=== PATIENT | male | born 1995 | race Caucasian/White ===

== ENCOUNTER 2024-03-31 16:13 | Emergency (ER) | payer OTHER ==
[2024-03-31 16:32] VITALS: RESP 18
--- NOTE | 2024-03-31 17:03 | XR ---
EXAMINATION TYPE: XR shoulder complete LT DATE OF EXAM: 03/31/2024 4:58 PM COMPARISON: None. CLINICAL INDICATION: Male, 28 years old with history of injury; [facility] TECHNIQUE: XR shoulder complete LT; examined in AP, internally rotated and scapular Y projections. FINDINGS: No evidence of acute osseous pathology, joint dislocation, or soft tissue swelling. The remaining po rtions of the visualized chest are unremarkable. IMPRESSION: No acute osseous pathology. [facility], , 03/31/2024 5:01 PM
[2024-03-31] MEDS: KETOROLAC 15 MG/ML 1 ML VIAL IM STA (17:09)
[2024-03-31] MEDS: DEXAMETHASONE SOD PHOSPHATE 10 MG/ML 1 ML VIAL IM STA (17:10)
[2024-03-31] MEDS: CYCLOBENZAPRINE 10 MG TAB PO STA (17:10)
[2024-03-31] MEDS: LIDOCAINE 4% PATCH TOPICAL ONE (17:10)
--- NOTE | 2024-03-31 17:13 | ED ---
Upper Extremity HPI - General Chief Complaint: Extremity Injury, Upper Stated Complaint: L shoulder injury-[facility] Time Seen by Provider: 03/31/24 16:21 Source: patient Mode of arrival: ambulatory Limitations: no limitations - History of Present Illness Initial Comments: 80-year-old male presenting with chief complaint of left shoulder pain. Patient was at work and opened a bay door when he started having the left shoulder pain. This happened around 9 AM. States that he tried to throughout the day but later on the pain became so bad that he was not able to work anymore. Pain starts at the anterior portion of the shoulder and comes down to his wrist. No neck pain. No obvious deformity. No swelling. Increased pain with any range of motion. - Related Data Allergies Allergy/AdvReac Type Severity Reaction Status Date / Time No Known Allergies Allergy Verified 03/31/24 16:32 Review of Systems ROS Statement: Those systems with pertinent positive or pertinent negative responses have been documented in the HPI. ROS Other: All systems not noted in ROS Statement are negative. Past Medical History Past Medical History: No Reported History History of Any Multi-Drug Resistant Organisms: None Reported Past Surgical History: No Surgical Hx Reported Past Psychological History: No Psychological Hx Reported Smoking Status: Never smoker Past Alcohol Use History: Occasional Past Drug Use History: None Reported General Exam Limitations: no limitations General appearance: alert, in no apparent distress Head exam: Present: atraumatic, normocephalic, normal inspection Eye exam: Present: normal appearance, EOMI Neck exam: Present: normal inspection. Absent: meningismus Respiratory exam: Absent: respiratory distress Cardiovascular Exam: Present: regular rate Left Shoulder Exam: Present: normal inspection, tenderness. Absent: full ROM, swelling, deformity Vascular: Absent: vascular compromise Neurological exam: Present: alert, oriented X3 Psychiatric exam: Present: normal affect, normal mood Skin exam: Present: warm, dry Course Vital Signs 03/31/24 03/31/24 16:28 17:57 Temperature 98.4 F 98.0 F Pulse Rate 63 67 Respiratory 18 18 Rate Blood Pressure 148/85 130/86 O2 Sat by Pulse 98 99 Oximetry Medical Decision Making - Medical Decision Making Was pt. sent in by a medical professional or institution (, PA, [facility], urgent care, hospital, or alf...) When possible be specific @ -No Did you speak to anyone other than the patient for history (EMS, parent, family, police, friend...)? What history was obtained from this source @ -No Did you review nursing and triage notes (agree or disagree)? Why? @ -I reviewed and agree with nursing and triage notes Were old charts reviewed (outside hosp., previous admission, EMS record, old EKG, old radiological studies, urgent care reports/EKG's, alf records)? Report findings @ -No old charts were reviewed Differential Diagnosis (chest pain, altered mental status, abdominal pain women, abdominal pain men, vaginal bleeding, weakness, fever, dyspnea, syncope, headache, dizziness, GI bleed, back pain, seizure, CVA, palpatations, mental health, musculoskeletal)? @ -Differential Musculoskeletal Muscular strain, contusion, ligament sprain, fracture, arthritis, septic arthritis, bursitis, cellulitis, muscle spasm, nerve compression, DVT, arterial occlusion, herpes zoster, electrolyte abnormality, tumor.... This is not meant to be in all inclusive list EKG interpreted by me (3pts min.). @ -As above X-rays interpreted by me (1pt min.). @ -X-ray shows no acute osseous pathology CT interpreted by me (1pt min.). @ -None done U/S interpreted by me (1pt. min.). @ -None done What testing was considered but not performed or refused? (CT, X-rays, U/S, labs)? Why? @ -None What meds were considered but not given or refused? Why? @ -None Did you discuss the management of the patient with other professionals (professionals i.e. , PA, [facility] [employer], lab, RT, psych nurse, licensed clinical social worker, processing engineer, teacher, finance officer, case management coordinator)? Give summary @ -No Was smoking cessation discussed for >3mins.? @ -No Was critical care preformed (if so, how long)? @ -No Were there social determinants of health that impacted care today? How? (Homelessness, low income, unemployed, alcoholism, drug addiction, transportation, low edu. Level, literacy, decrease access to med. care, prison, rehab)? @ -No Was there de-escalation of care discussed even if they declined (Discuss DNR or withdrawal of care, Hospice)? DNR status @ -No What co-morbidities impacted this encounter? (DM, HTN, Smoking, COPD, CAD, Cancer, CVA, ARF, Chemo, Hep., AIDS, mental health diagnosis, sleep apnea, morbid obesity)? @ -None Was patient admitted / discharged? Hospital course, mention meds given and route, prescriptions, significant lab abnormalities, going to OR and other pertinent info. @ -28-year-old male injured his left shoulder at work today while he was opening up a door. He is neurovascularly intact. He has increased pain with range of motion. X-rays negative for acute osseous pathology. Patient is treated with pain medication on reassessment reports minimal pain. He is educated on today's findings and supportive management at home. Follow-up with PCP. Report back to ER with any new or worsening symptoms. Discussed return parameters and answered all questions. Patient conveyed verbal understanding and agreed to the plan. I discussed this case in detail with my attending Dr. Shaffer Undiagnosed new problem with uncertain prognosis? @ -No Drug Therapy requiring intensive monitoring for toxicity (Heparin, Nitro, Insulin, Cardizem)? @ -No Were any procedures done? @ -No Diagnosis/symptom? @ -Shoulder strain Acute, or Chronic, or Acute on Chronic? @ -Acute Uncomplicated (without systemic symptoms) or Complicated (systemic symptoms)? @ -Uncomplicated Side effects of treatment? @ -No Exacerbation, Progression, or Severe Exacerbation? @ -No Poses a threat to life or bodily function? How? (Chest pain, [place], [place], pneumonia, PE, COPD, DKA, ARF, appy, cholecystitis, CVA, Diverticulitis, Homicidal, Suicidal, threat to staff... and all critical care pts) @ -Unlikely Disposition Clinical Impression: Shoulder strain Disposition: HOME SELF-CARE Condition: Good Instructions (If sedation given, give patient instructions): Rotator Cuff Injury (ED) Additional Instructions: Follow-up with PCP and orthopedics. Report back to ER with any new or worsening symptoms. Take Motrin and Tylenol as needed for pain control. Rest ice and elevate the arm. Is patient prescribed a controlled substance at d/c from ED?: No Referrals: None,Stated [Primary Care Provider] - 1-2 days Earl Hernandez DO [Doctor of Osteopathic Medicine] - 1-2 days Forms: Area PCPs Time of Disposition: 17:34
[2024-03-31 17:59] VITALS: BP 130/86; PULSE 67; TEMP 98
== END 2024-03-31 18:20 | disposition home or self-care (01) ==
LOC: EC 16:13
DX: S46.012A Strain of muscle(s) and tendon(s) of the rotator cuff of left shoulder, initial encounter (principal); X50.0XXA Overexertion from strenuous movement or load, initial encounter; Y99.0 Civilian activity done for income or pay
CPT/HCPCS: 73030; 99283; 96372 ×2; J1100; J1885

== ENCOUNTER 2024-07-27 18:14 | Emergency (ER) | payer BC, OTHER ==
[2024-07-27] MEDS: ACETAMINOPHEN TAB 325 MG TAB PO STA (20:42)
[2024-07-27] MEDS: IBUPROFEN 600 MG TAB PO STA (20:43)
--- NOTE | 2024-07-27 20:54 | XR ---
EXAMINATION TYPE: XR chest 2V DATE OF EXAM: 07/27/2024 8:46 PM COMPARISON: None CLINICAL INDICATION: Male, 29 years old with history of cough; TECHNIQUE: XR chest 2V Frontal and lateral views of the chest. FINDINGS: Lungs/Pleura: There is no evidence of pleural effusion, focal consolidation, or pneumothorax. Pulmonary vascularity: Unremarkable. Heart/mediastinum: Cardiomediastinal silhouette is unremarkable. Musculoskeletal: No acute osseous pathology. IMPRESSION: No acute cardiopulmonary disease/process. [facility], , 07/27/2024 8:52 PM
[2024-07-27 21:49] LABS: Influenza A Not Detected (Not Detectd); Influenza B Not Detected (Not Detectd); RSV Not Detected (Not Detectd)
--- NOTE | 2024-07-27 22:23 | ED ---
Fever HPI - General Chief Complaint: Fever Stated Complaint: Fever Time Seen by Provider: 07/27/24 20:08 Source: patient Mode of arrival: ambulatory Limitations: no limitations - History of Present Illness Initial Comments: 29-year-old male presenting with chief complaint of fever. Patient admits to cough congestion and throat irritation. Has been ongoing for about 3 days. No nausea vomiting abdominal pain or diarrhea. He has been taking Tylenol. No chest pain or difficulty breathing. No rash. - Related Data Allergies Allergy/AdvReac Type Severity Reaction Status Date / Time No Known Allergies Allergy Verified 07/27/24 18:59 Review of Systems ROS Statement: Those systems with pertinent positive or pertinent negative responses have been documented in the HPI. ROS Other: All systems not noted in ROS Statement are negative. Past Medical History Past Medical History: No Reported History History of Any Multi-Drug Resistant Organisms: None Reported Past Surgical History: No Surgical Hx Reported Past Psychological History: No Psychological Hx Reported Smoking Status: Never smoker Past Alcohol Use History: Occasional Past Drug Use History: None Reported General Exam Limitations: no limitations General appearance: alert, in no apparent distress Head exam: Present: atraumatic, normocephalic, normal inspection Eye exam: Present: normal appearance, EOMI Neck exam: Present: normal inspection. Absent: meningismus Respiratory exam: Present: normal lung sounds bilaterally. Absent: respiratory distress, wheezes, rales, rhonchi, stridor Cardiovascular Exam: Present: normal rhythm, tachycardia, normal heart sounds. Absent: systolic murmur, diastolic murmur, rubs, gallop, clicks Neurological exam: Present: alert, oriented X3 Psychiatric exam: Present: normal affect, normal mood Skin exam: Present: warm, dry Course Vital Signs 07/27/24 07/27/24 07/27/24 18:57 21:09 21:43 Temperature 100.6 F H 100.0 F H Pulse Rate 102 H Respiratory 22 22 Rate Blood Pressure 130/87 O2 Sat by Pulse 98 Oximetry 07/27/24 22:35 Temperature 99.0 F Pulse Rate 86 Respiratory 20 Rate Blood Pressure 110/75 O2 Sat by Pulse 96 Oximetry Medical Decision Making - Medical Decision Making Was pt. sent in by a medical professional or institution (, PA, [employer], urgent care, hospital, or half-way...) When possible be specific @ -No Did you speak to anyone other than the patient for history (EMS, parent, family, police, friend...)? What history was obtained from this source @ -No Did you review nursing and triage notes (agree or disagree)? Why? @ -I reviewed and agree with nursing and triage notes Were old charts reviewed (outside hosp., previous admission, EMS record, old EKG, old radiological studies, urgent care reports/EKG's, half-way records)? Report findings @ -No old charts were reviewed Differential Diagnosis (chest pain, altered mental status, abdominal pain women, abdominal pain men, vaginal bleeding, weakness, fever, dyspnea, syncope, headache, dizziness, GI bleed, back pain, seizure, CVA, palpatations, mental health, musculoskeletal)? @ -Differential includes influenza, RSV, COVID, pneumonia, bronchitis, asthma, not an all-inclusive list EKG interpreted by me (3pts min.). @ -As above X-rays interpreted by me (1pt min.). @ -Chest x-ray shows no acute process CT interpreted by me (1pt min.). @ -None done U/S interpreted by me (1pt. min.). @ -None done What testing was considered but not performed or refused? (CT, X-rays, U/S, labs)? Why? @ -None What meds were considered but not given or refused? Why? @ -None Did you discuss the management of the patient with other professionals (professionals i.e. , PA, [employer], lab, RT, psych nurse, social insurance specialist, creative services producer, teacher, co founder and chief strategy officer, case folder)? Give summary @ -No Was smoking cessation discussed for >3mins.? @ -No Was critical care preformed (if so, how long)? @ -No Were there social determinants of health that impacted care today? How? (Homelessness, low income, unemployed, alcoholism, drug addiction, transportation, low edu. Level, literacy, decrease access to med. care, halfway, rehab)? @ -No Was there de-escalation of care discussed even if they declined (Discuss DNR or withdrawal of care, Hospice)? DNR status @ -No What co-morbidities impacted this encounter? (DM, HTN, Smoking, COPD, CAD, Cancer, CVA, ARF, Chemo, Hep., AIDS, mental health diagnosis, sleep apnea, morbid obesity)? @ -None Was patient admitted / discharged? Hospital course, mention meds given and route, prescriptions, significant lab abnormalities, going to OR and other pertinent info. @ -29-year-old male presenting with chief complaint of fever and URI-like symptoms. History and physical examination are conducted. Heart lungs are clear to auscultation. He is given Motrin and Tylenol for his fever. Chest x- ray shows no acute process and he is negative for COVID, influenza, RSV. Patient is educated on today's findings and supportive management of URI at home. Follow-up with PCP. Report back to ER with any new or worsening sy mptoms. Discussed return parameters and answered all questions. Patient conveyed verbal understanding and agreed to the plan. I discussed this case in detail with my attending Dr. york Undiagnosed new problem with uncertain prognosis? @ -No Drug Therapy requiring intensive monitoring for toxicity (Heparin, Nitro, Insulin, Cardizem)? @ -No Were any procedures done? @ -No Diagnosis/symptom? @ -URI Acute, or Chronic, or Acute on Chronic? @ -Acute Uncomplicated (without systemic symptoms) or Complicated (systemic symptoms)? @ -Uncomplicated Side effects of treatment? @ -No Exacerbation, Progression, or Severe Exacerbation? @ -No Poses a threat to life or bodily function? How? (Chest pain, [place], [place], pneumonia, PE, COPD, DKA, ARF, appy, cholecystitis, CVA, Diverticulitis, Homicidal, Suicidal, threat to staff... and all critical care pts) @ -Unlikely - Lab Data Lab Results 07/27/24 07/27/24 Range/Units 21:06 21:06 Influenza Type A (PCR) Not Detected (Not Detectd) Influenza Type B (PCR) Not Detected (Not Detectd) RSV (PCR) Not Detected (Not Detectd) SARS-CoV-2 (PCR) Not Detected (Not Detectd) Group A Strep (PCR) NOT DETECTED (Not Detectd) Disposition Clinical Impression: Viral syndrome Disposition: HOME SELF-CARE Condition: Good Instructions (If sedation given, give patient instructions): Fever in Adults (ED) Additional Instructions: Follow-up with PCP. Report back to ER with any new or worsening symptoms. Take Motrin and Tylenol as needed for fever control. Is patient prescribed a controlled substance at d/c from ED?: No Referrals: [facility] [NON-STAFF] - 1-2 days (Contact a primary care office to become established with a provider.) None,Stated [Primary Care Provider] - 1-2 days Forms: Area PCPs Time of Disposition: 22:23
[2024-07-27 22:39] VITALS: BP 110/75; PULSE 86; RESP 20; TEMP 99
== END 2024-07-27 22:35 | disposition home or self-care (01) ==
LOC: EC 18:14
DX: B34.9 Viral infection, unspecified (principal)
CPT/HCPCS: 71046; 87636; 87651; 99283

== ENCOUNTER → 2024-09-11 | Outpatient (CLI) | payer OTHER ==
--- NOTE | 2024-09-12 07:36 | FL ---
EXAMINATION TYPE: FL arthrogram shoulder LT fluoroscopic-guided arthrogram injection. DATE OF EXAM: 09/11/2024 HISTORY: Left shoulder pain PROCEDURES: 1. 0.52 seconds fluoroscopy. 2. Left shoulder arthrogram. TECHNIQUE: The procedure, risks, and alternatives, were discussed with the patient, who requested that lowell stern The consent form was signed, and teach-back occurred. The site/side of the procedure was marked with a line with participation by the patient. The accompan dejon paperwork was verified for consistency. A directed history and physical exam was performed prior to the procedure. Medication reconciliation was performed by ancillary personnel. A critical pause was performed with assisting personnel just pr ior to the procedure, and the patient's identity was confirmed using 2 identifiers. Imaging guidance was utilized to select the precise skin entry point just prior to the procedure. The left shoulder was prepped and draped in the usual sterile fashion and local 1% lidocaine anesthes ia was instilled. Under fluoroscopic guidance, a 22 gauge spinal needle was introduced into the left glenohumeral joint. Appropriate needle tip position was confirmed after a small amount of contrast i njection. Approximately 10 ml of a mixture of Omnipaque 240 iodinated contrast and gadolinium was injected into the glenohumeral joint. The needle was then removed. The patient tolerated the procedure well. A post-procedure note was placed into the medical record. There was no immediate complication. After the procedure, the patient's condition was unchanged. Estimated blood loss was minimal. IMPRESSION: Technically successful left shoulder arthrogram injection for MRI. No immediate complication. [facility], , 09/12/2024 7:34 AM
--- NOTE | 2024-09-14 21:25 | MR ---
MR shoulder LT w con DATE OF EXAM: 09/11/2024 4:45 PM COMPARISON: Noncontrast left shoulder MRI 04/06/2024. Left shoulder radiographs 04/04/2024. CLINICAL INDICATION: Male, 29 years old with history of M25.512, S43.439A; [facility], Left shoulder pain si nce injury 03-31-2024, Weakness Lt arm TECHNIQUE: Multiplanar, multiecho imaging of the shoulder was performed, including T1-weighted and fl uid sensitive sequences. Images were obtained following the intra-articular instillation of dilute co ntrast material via direct shoulder arthrography (see separate dictation for arthrogram details). FINDINGS: Rotator cuff: Supraspinatus and infraspinatus: Mild tendinosis of the intact supraspinatus. Infraspinatus intact. Subscapularis: Intact. Teres minor: Intact. Cuff muscles: Symmetric bulk and signal intensity. Acromioclavicular joint: Normal. SA-SD bursa: No bursal fluid. Long head biceps tendon: Intact, with normal course. Rotator Interval: Edematous with partial effacement of the fat, presumably iatrogenic. Axillary pouch: Normal. Labrum: [place] complex is suggested with diminutive appearance of the anterior labrum prominence of t he MGHL. Punctate parameniscal cyst at the posterior inferior labral junction concerning for MR occul t tear. No linear contrast-filled defect to suggest discrete displaced tear. Cartilage: Intact. Marrow: No acute fracture or marrow replacing process. Other soft tissues: Extra-articular contrast extends from the subscapularis recess and follows the co ntour of the muscular and osseous border of the internal scapula and subscapularis proximally out of the field of view, possibly iatrogenic. No axillary adenopathy. IMPRESSION: No discrete labral tear. Punctate parameniscal cyst at the posterior inferior labral junction, new fr om prior MR 04/06/2024, raises concern for MR occult tear. [facility], , 09/14/2024 9:23 PM
== END | disposition home or self-care (01) ==
LOC: RADFLMAIN 14:21
PROVIDERS: ATTEND Orthopaedic Surgery
DX: S43.432A Superior glenoid labrum lesion of left shoulder, initial encounter (principal); X58.XXXA Exposure to other specified factors, initial encounter
CPT/HCPCS: 23350; 73040; 73222; A9585